=== PATIENT | male | born 1955 | race Caucasian/White ===

== ENCOUNTER 2018-01-30 16:32 | Emergency (ER) | payer OTHER ==
[2018-01-30 17:24] LABS: ABSOLUTE BASOPHIL COUNT 0 /CUMM (0.0-0.2); ABSOLUTE EOSINOPHIL COUNT 0.2 /CUMM (0.0-0.7); ABSOLUTE GRANULOCYTE CT 3.3 /CUMM (1.4-6.5); ABSOLUTE LYMPH COUNT 2.1 /CUMM (1.2-3.4); ABSOLUTE MONOCYTE COUNT 0.5 /CUMM (0.10-0.60); BASOPHIL % 0.6 % (0.0-2.0); EOSINOPHIL % 2.5 % (0-5); GRANULOCYTE % 54.5 % (42.2-75.2); HEMATOCRIT 45.6 % (42-52); MEAN CORPUSCULAR HGB 31.5 PG (27.0-31.0); MEAN CORPUSCULAR HGB CONC 33.9 G/DL (33.0-37.0); MEAN CORPUSCULAR VOLUME 92.7 FL (80.0-94.0); MEAN PLATELET VOLUME 7.7 FL (7.4-10.4); PLATELET COUNT 181 /CUMM (130-400); RBC DISTRIBUTION WIDTH 13.2 % (11.5-14.5); RED BLOOD CELL CT 4.92 /CUMM (4.70-6.10); WHITE BLOOD CELL COUNT 6.1 /CUMM (4.8-10.8)
--- NOTE | 2018-01-30 21:31 | ED GENERAL ADULT ---
History of Present Illness General Chief Complaint: General Adult Stated Complaint: HIGH BLOOD SUGAR Source: patient Exam Limitations: no limitations Vital Signs & Intake/Output Vital Signs & Intake/Output Vital Signs Date Time Temp Pulse Resp B/P B/P Pulse O2 O2 Flow FiO2 Mean Ox Delivery Rate 01/30 2325 97.8 55 18 139/74 97 Room Air 01/30 2242 73 18 120/76 99 Room Air 01/30 2047 63 18 152/84 96 Room Air 01/30 1649 97.9 81 17 150/94 96 Room Air ED Intake and Output 01/31 0000 01/30 1200 Intake Total 3000 Output Total Balance 3000 Intake, IV 3000 Allergies Coded Allergies: Penicillins (Intermediate, HIVES 01/30/18) Triage Note: PT SENT TO ED FROM PCP FOR EVAL OF NEW ONSET DIABETES. HAD BLOOD SUGAR >500. BLOOD SUGAR 430 IN TRIAGE. PT DENIES ANY SYMPTOMS. Triage Nurses Notes Reviewed? yes Onset: Abrupt Duration: hour(s): Timing: constant HPI: 62-year-old male with history of hypertension sent in from his PMDs office for hyperglycemia greater than 500. Patient had a previously normal A1c a few months ago, today his A1c was noted to be significantly elevated with a point-of -care glucose that was greater than 500. He was sent into the emergency department for rule out DKA. At this time he is asymptomatic and has no complaints. Denies fevers, chest pain, shortness of breath, abdominal pain, nausea, vomiting, diarrhea, dysuria. (Nya Branch) Past History Travel History Traveled to [place] past 21 day No Medical History Any Pertinent Medical History? see below for history Cardiovascular: hypertension Surgical History Surgical History: non-contributory Psychosocial History Who do you live with Family Services at Home None What is your primary language Wolof Tobacco Use: Never used ETOH Use: denies use Illicit Drug Use: denies illicit drug use Family History Hx Contributory? No (Nya Branch) Review of Systems Review of Systems Constitutional: Reports: no symptoms. EENTM: Reports: no symptoms. Respiratory: Reports: no symptoms. Cardiovascular: Reports: no symptoms. GI: Reports: no symptoms. Genitourinary: Reports: no symptoms. Musculoskeletal: Reports: no symptoms. Skin: Reports: no symptoms. Neurological/Psychological: Reports: no symptoms. Hematologic/Endocrine: Reports: no symptoms. Immunologic/Allergic: Reports: no symptoms. All Other Systems: Reviewed and Negative (Nya Branch) Physical Exam Physical Exam General Appearance: well developed/nourished, no apparent distress, alert, awake Comments: Gen.: Well-nourished, well-developed, no acute distress. Head: Normocephalic, atraumatic. Eyes: Normal inspection bilaterally Ears: Normal inspection bilaterally Nose: Normal inspection Neck: Normal inspection Lungs: clear to auscultation bilaterally, normnal breath sounds Heart: regular rate and rhythm Abdomen: soft and non-tender Extremities: Normal inspection Neurologic: alert and oriented x3, steady gait Skin: warm and dry Psychiatric: Normal mood and affect, no apparent delusions or hallucinations, behavior appropriate Core Measures ACS in differential dx? No CVA/TIA Diagnosis: No Sepsis Present: No Sepsis Focused Exam Completed? No (Nya Branch) Progress Differential Diagnoses I considered the following diagnoses in my evaluation of the patient: [ Hyperglycemia versus DKA versus HHS] Plan of Care: Orders Procedure Date/time Status TROPONIN LEVEL 01/30 2135 Complete EKG 01/30 2135 Active TROPONIN LEVEL 01/30 171 Complete FingerStick- Glucose 01/30 164 Active URINALYSIS 01/30 164 Complete MAGNESIUM 01/30 164 Complete COMPREHENSIVE METABOLIC PANEL 01/30 164 Complete CBC WITHOUT DIFFERENTIAL 01/30 164 Complete EKG 01/30 164 Active Current Medications Sig/Fox Start time Last Medication Dose Stop Time Status Admin Insulin Human Regular 4 UNITS ONCE ONE 01/30 170 CAN (NovoLIN R) 01/30 1701 Laboratory Tests 01/30/18 2150: Troponin I < 0.01 01/30/18 1725: Urine Color YEL, Urine Clarity CLEAR, Urine pH 6.0, Ur Specific Redby 1.015, Urine Protein NEG, Urine Ketones NEG, Urine Nitrite NEG, Urine Bilirubin NEG, Urine Urobilinogen 0.2, Ur Leukocyte Esterase NEG, Ur Microscopic EXAM NOT REQUIRED, Urine Hemoglobin NEG, Urine Glucose >=1000 H 01/30/18 1710: Anion Gap 13, Estimated GFR > 60, BUN/Creatinine Ratio 22.5, Glucose 489 H, Calcium 9.6, Magnesium 1.8, Total Bilirubin 0.7, AST 41, ALT 58, Alkaline Phosphatase 85, Troponin I < 0.01, Total Protein 7.5, Albumin 4.3, Globulin 3.2, Albumin/Globulin Ratio 1.3, CBC w Diff NO MAN DIFF REQ, RBC 4.92, MCV 92.7, MCH 31.5 H, MCHC 33.9, RDW 13.2, MPV 7.7, Gran % 54.5, Lymphocytes % 34.7, Monocytes % 7.7, Eosinophils % 2.5, Basophils % 0.6, Absolute Granulocytes 3.3, Absolute Lymphocytes 2.1, Absolute Monocytes 0.5, Absolute Eosinophils 0.2, Absolute Basophils 0 01/30/18 1650: Troponin I Cancelled EKG showed new T-wave inversions in V1 and 2, troponin was negative 2. Patient denies any chest pain or shortness of breath. Will follow up with his PMD for further evaluation of his EKG changes, also given cardiology follow-up. Labs are remarkable for hyperglycemia with no evidence of DKA. He was given 2 L of normal saline and 3 units of subcu insulin with improvement of his blood glucose to 250. He was instructed to follow-up with his PMD tomorrow for further evaluation of his diabetes, and to likely initiate a diabetes regimen. Counseled on supportive care and strict return precautions. Patient was discussed with the ED attending. Initial ED EKG: rhythm (sinus), T wave inversions in V1 and V2 (Nya Branch) Departure Departure Disposition: HOME OR SELF CARE Condition: Stable Clinical Impression Primary Impression: Hyperglycemia Secondary Impressions: Acute electrocardiogram changes Referrals: Natalia Alcantara (PCP/Family) Keenan Salazar MD Additional Instructions: Follow-up with your primary care provider tomorrow for reevaluation of your high blood sugar. You will likely need to be started on a medication for diabetes tomorrow when you are evaluated. Also follow-up with your primary care doctor and cardiology for further evaluation of your EKG changes. Return to the emergency department for any new or worsening symptoms. Departure Forms: Customer Survey General Discharge Information (Nya Branch) PA/TYPEWRITER ALIGNER Co-Sign Statement Statement: ED Attending supervision documentation- [x] I saw and evaluated the patient. I have also reviewed all the pertinent lab results and diagnostic results. I agree with the findings and the plan of care as documented in the PA's/TYPEWRITER ALIGNER's documentation. [] I have reviewed the ED Record and agree with the PA's/TYPEWRITER ALIGNER's documentation. [] Additions or exceptions (if any) to the PAs/TYPEWRITER ALIGNER's note and plan are summarized below: [] (Richie Bowden DO) PA/TYPEWRITER ALIGNER Co-Sign Statement Statement: ED Attending supervision documentation- [] I saw and evaluated the patient. I have also reviewed all the pertinent lab results and diagnostic results. I agree with the findings and the plan of care as documented in the PA's/TYPEWRITER ALIGNER's documentation. [x] I have reviewed the ED Record and agree with the PA's/TYPEWRITER ALIGNER's documentation. [] Additions or exceptions (if any) to the PAs/TYPEWRITER ALIGNER's note and plan are summarized below: [] (Chilango AGUIRRE,Mejia Jurado) Critical Care Note Critical Care Note Critical Care Time: non-applicable (Nya Branch)
[2018-01-30 23:25] VITALS: BP 139/74
== END 2018-01-30 23:25 ==
LOC: ERH 16:32
PROVIDERS: Physician Assistant
DX: R73.9 Hyperglycemia, unspecified (principal); R94.31 Abnormal electrocardiogram [ECG] [EKG]; I10 Essential (primary) hypertension
CPT/HCPCS: 81003; 93005; 93010; 96360; 96372